=== PATIENT | male | born 1960 | race Caucasian/White ===

== ENCOUNTER 2018-10-20 11:01 | Outpatient (CLI) | payer MEDICARE, MEDICAID, SELFPAY ==
--- NOTE | 2018-11-11 08:33 | ZIOP_ITS ---
ZIO PATCH INTERPRETATION DATE OF DICTATION November 11, 2018 STUDY INDICATION Palpitations. REQUESTING PROVIDER Chance Sanchez M.D. FINDINGS The patient was monitored for 13 days and 1 hour. COMMENTS The predominant underlying rhythm was sinus rhythm. Average heart rate in sinus rhythm 82 beats per minute, range 45 to 144 beats. There was occasional supraventricular ectopy, 1.7% PACs. There was 1 atrial run lasting 4 beats with an average heart rate of 100 beats per minute. There was rare ventricular ectopy, less than 1% PVCs. There was no ventricular tachycardia. There was nocturnal sinus bradycardia. There was no higher-degree heart block. There were no pauses greater than 3 seconds. There were 82 patient events. The majority of events correlated with PACs and PVCs. FINAL INTERPRETATION Occasional PACs and rare PVCs, symptomatic. No significant tachyarrhythmias. Amado Bergeron M.D. YUKO/gabriel T - 11/11/2018
== END 2018-10-20 11:21 ==
PROVIDERS: PCP General Practice; Visit Provider General Practice
DX: R00.2 Palpitations (principal); I49.3 Ventricular premature depolarization; I49.1 Atrial premature depolarization
CPT/HCPCS: 93225

== ENCOUNTER 2018-11-11 08:04 | Outpatient (CLI) | payer MEDICARE, MEDICAID, SELFPAY | END 2018-11-11 08:24 | PROVIDERS: PCP General Practice; Referring Provider General Practice; Visit Provider Student in an Organized Health Care Education/Training Program | DX: R00.2 Palpitations (principal); I49.3 Ventricular premature depolarization; I49.1 Atrial premature depolarization | CPT/HCPCS: 0298T ==

== ENCOUNTER 2024-05-11 21:29 | Outpatient (REF) | payer MEDICARE, MEDICAID, SELFPAY ==
[2024-05-11 13:40] LABS: Abs Immature Grans 0.03 10^3/uL (0.0-0.06); Absolute Basophil Count 0.03 10^3/uL (0.0-0.2); Absolute Eosinophil Count 0.06 10^3/uL (0.0-0.7); Absolute Lymphocyte Count 1.63 10^3/uL (1.2-3.4); Absolute Monocyte Count 0.46 10^3/uL (0.1-0.8); Absolute Neutrophil Count 3.62 10^3/uL (1.2-6.7); Basophils % 0.5 %; HCT 43.3 % (40.0-50.0); HGB 14.3 g/dL (13.5-17.5); Immature Grans % 0.5 %; MCH 29.8 pg (27.0-33.0); MCV 90 fL (80-95); MPV 11.1 fL (8.0-11.0); Monocytes % 7.9 %; Neutrophils % 62.1 %; Platelet Count 240 10^3/uL (130-400); RDW 12.7 % (11.8-14.1); RDW-SD 42.3 fL; WBC 5.83 10^3/uL (4.4-10.8)
[2024-05-11 14:02] LABS: ALT 28 U/L (16-63); AST 22 U/L (15-37); Albumin 3.9 g/dL (3.4-5.0); Alkaline Phosphatase 72 U/L (46-116); Anion Gap 11.1 mmol/L (3-11); BUN 23 mg/dL (7-18); Bilirubin, Total 0.39 mg/dL (0.2-1.0); CO2 21.9 mmol/L (21.0-32.0); Calcium 8.8 mg/dL (8.5-10.1); Calculated LDL 127 mg/dL (<100); Chloride 107 mmol/L (98-107); Cholesterol 188 mg/dL (<200); Estimated GFR 83.01 (mL/min/1.73m2); Glucose 104 mg/dL (74-106); HDL Cholesterol 50 mg/dL (40-60); Potassium 4.3 mmol/L (3.5-5.1); Sodium 140 mmol/L (136-145); TSH (W/Ref FT4) 2.13 uIU/mL (0.36-3.74); Total Protein 7.1 g/dL (6.4-8.2); Triglyceride 55 mg/dL (<150)
[2024-05-11 14:03] LABS: Hemoglobin A1C 5.5 % (<5.7)
[2024-05-12 11:05] LABS: Hepatitis A Antibody IgM Negative (Negative); Hepatitis B Core Antibody Negative (Negative); Hepatitis B surface Ag Negative (Negative); Hepatitis C Ab w Rflx HCV PCR Negative (Negative)
== END 2024-05-11 21:30 | disposition home or self-care (01) ==
LOC: LBN 21:29
PROVIDERS: PCP General Practice; Visit Provider Nurse Practitioner Family
DX: Z00.00 Encounter for general adult medical examination without abnormal findings (principal)
CPT/HCPCS: 80053; 80061; 84153; 86704; 86709; 86803; 87340; 83036; 84443; 85025

== ENCOUNTER → 2024-07-30 13:18 | Outpatient (BNVA) | payer MEDICARE, MEDICAID, SELFPAY | PROVIDERS: PCP General Practice; Referring Provider General Practice; Visit Provider Physical Therapy Assistant | DX: Z12.11 Encounter for screening for malignant neoplasm of colon (principal) ==

== ENCOUNTER 2024-08-14 10:41 | Day surgery (SDC) | payer MEDICARE, MEDICAID, SELFPAY ==
[2024-08-14 11:17] VITALS: BP 119/88; PULSE 71; RESP 16; TEMP 36.9; O2SAT 100
[2024-08-14] MEDS: Normal Saline Flush 10 ML SYR IV (11:38)
--- NOTE | 2024-08-14 12:25 | W.ANESPRE ---
General Info Date of Service Date Performed: 08/14/24 Height: 5 ft 11 in Weight: 84.4 kg Body Mass Index (BMI): 25.9 Surgical Procedure: Operation Date: 08/14/24 12:20 Proposed Procedure Side Surgeon yefri Jiang, DO Meds Allergies and Home Medications Allergies Allergy/AdvReac Type Severity Reaction Status Date / Time hayfever Allergy Mild Other (See Uncoded 08/14/24 11:29 Comment) Home Medication ?Medication ?Instructions ?Recorded meclizine 25 mg tablet (Antivert) 25 mg PO Q6H PRN #30 tabs 09/14/13 sertraline 50 mg tablet 50 mg PO DAILY 05/21/24 bisacodyl 5 mg tablet,delayed 5 mg PO ONCE #4 tabs 07/30/24 release (Dulcolax (bisacodyl)) polyethylene glycol 3350 17 17 g PO ONCE #238 grams 07/30/24 gram/dose oral powder Current Visit Medications: Current Medications Generic Name Dose Route Start Last Admin Trade Name [place] PRN Reason Stop Dose Admin Ringer's Solution 500 mls @ 80 mls/hr 08/14/24 06:00 IV 09/12/24 23:59 INFUSION BRADLY IV Miscellaneous Supplies 1 each 08/14/24 06:00 Iv Access IV 09/12/24 23:59 DIRECTED BRADLY Sodium Chloride 0 ml 08/14/24 06:00 08/14/24 11:38 Normal Saline Flush 10 Ml Syr IV 09/12/24 23:59 10 ml PRN PRN Administration Sodium Chloride 0 ml 08/14/24 06:00 Normal Saline 10 Ml Vial IJ 09/12/24 23:59 DIRECTED PRN Sterile Water 0 ml 08/14/24 06:00 Water,Injection,Sterile 10 Ml Vial IJ 09/12/24 23:59 DIRECTED PRN PFSH Active Problems Active Problems: Problem Status Onset Code Basal cell carcinoma of skin of scalp and neck Acute C44.41 Other obstructive and reflux uropathy Acute N13.8 Pain in right wrist Acute M25.531 Medical History Medical History Elevated lipoprotein(a) Unspecified visual disturbance Major depressive disorder, single episode, mild Tinnitus, unspecified ear Personal history of nicotine dependence Surgical History Surgical History (Updated 08/14/24 @ 11:30 by Linda Corona RN) [place] teeth removed History of appendectomy Hx of hernia repair Tobacco Smoking/Tobacco Use Status: Former Tobacco Use Alcohol Alcohol Intake: never Substance Use Substance use: Never Substance use type: does not use Vital Signs and Lab Results Vital Signs Most Recent Vital Signs in EMR: Most Recent Vital Signs Temp Pulse Resp BP Pulse Ox 36.9 C 71 16 119/88 100 08/14/24 11:17 08/14/24 11:17 08/14/24 11:17 08/14/24 11:17 08/14/24 11:17 Lab Results Blood Type / Crossmatch: No Data to Display Complete Blood Count: No Data to Display Complete Metabolic Panel: No Data to Display Liver Function Panel: No Data to Display Coagulation Panel: No Data to Display Cardiac Panel: No Data to Display Arterial Blood Gas: No Data to Display Venous Blood Gas: No Data to Display Pancreas Panel: No Data to Display Thyroid Panel: No Data to Display Infectious Disease: No Data to Display Blood Cultures: No Data to Display Toxicology Panel: No Data to Display Anesthesia Assessment and Plan Anesthesia History Personal History: No History of Anesthesia Complications Family History: No Family History of Anesthesia Complications Exercise Tolerance Exercise Tolerance: Metabolic Equivalents>4 Pertinent Negatives Pertinent Negatives: No Symptoms of GERD, No Major Cardiovascular Symptoms or Complaints, No Major Pulmonary Symptoms or Complaints and No History of CVA/TIA Cardiac & Pulmonary Exam Cardiac Exam: Normal S1/S2 Heart Sounds Pulmonary Exam: Clear Bilateral Breath Sounds Implantable Cardiac Device Does patient have a Pacemaker or an ICD?: No Airway Exam Known Difficult Airway: No Mallampati Class: 1 Mouth Opening: Normal (> 3cm) Thyromental Distance: Greater than 3 cm Neck Range of Motion: Full ROM Neck Circumference: Normal Teeth Condition: Normal Dentition ASA Classification ASA Score: ASA 2 Emergency Case?: No NPO Status NPO Status: NPO Clears >2 hours, Solids >8 hours Anesthesia Plan Resuscitation Status: Full Code Anesthesia Technique: General Anesthesia Airway Planned: Natural Airway Monitors Used: Standard Monitors Preoperative Comments:: 64 y/o male with history of depression, recovering alcoholic, and BCC of scalp/neck presents for colonoscopy screening.
[2024-08-14 12:29] VITALS: BMI 25.9
--- NOTE | 2024-08-14 13:15 | BOWEL_PTH ---
PATIENT: Joseph Allred LOC: [facility] U#:[id number] AGE/SX: 64/M ROOM: RE08/14/[address]: Karyn Jiang : 1960 BED: DIS: 08/14/2024 SPEC #: [id number] RECD: 08/14/24 15:24 STATUS: ROSEANNA REQ #: [id number] CLAUDIA: 08/14/24 13:[address]: Karyn Jiang DEPT: Surgical Specimen RECD BY: Marley Bone ENTERED: 08/14/24 15:26 SP TYPE: Bowel OTHR DR: Dalia Rodriguez Tissues: 1 - BIOPSY BOWEL 2 - BIOPSY BOWEL Procedures: GROSS AND MICRO LEVEL 4 Comments: [id number]
[2024-08-14 13:34] VITALS: BP 101/69; PULSE 77; RESP 16; TEMP 36.5; O2SAT 95
--- NOTE | 2024-08-14 13:42 | W.COLOREPORT ---
Date of service: 08/14/24 Time of Service: 13:43 Colonoscopy Report Date of procedure: 08/14/24 Pre-op diagnosis general: [facility] screening Post-op diagnosis procedure note: same (Diverticula and polyps) Surgeon: Karyn Jiang Anesthesia Type: General:No Airway Estimated blood loss (mL): 1 Pathology: other Complications: None Disposition: same day Prep: Miralax/Dulcolax Retraction Time: 15 Procedure Description: After informed consent was obtained, explaining risks of the procedure, including but not limits to: bleeding, infections, complications of anesthesia, perforations (which may require antibiotics and /or surgery and stay in the hospital), and abdominal pain/cramping. The patient was taken to the procedure room and placed in a left decubitous position. Monitors were applied and a time out was done. The patients name, date of , procedure, allergies to medications and metal in their body was reviewed. The patient was then sedated. Once sedated and comfortable a rectal exam was done. External exam was normal. Internal exam revealed a normal sphincter tone and no palpable masses. The prostate -no palpable masses The previously lubricated Olympus scope was then introduced (see RN notes for scope number) and retrofelexed. Grade 1 internal hemorrhoids were identified. The scope was then advanced to the cecum without difficulty. The TI and appendiceal orifice were identified. The scope was then slowly retracted over minutes back into the rectum. Polyps: A flat, .75cm polyp was found at 80cm. This was removed with a cold biting forceps. He has a second flat 0.5 cm polyp at 80 cm that is removed with a cold biopsy forcep. There is also a flat 0.5 cm polyp in the rectum that is removed with a cold biopsy forceps. All of the specimen was retrieved. This will be sent to pathology. There is no bleeding noted from the polypectomy site. Diverticula: pt had a minor amount of small mouthed diverticula in the sigmoid colon. There were no signs of active bleeding or infection. The mucosa is pink and healthy w/ a normal vascular pattern. The scope was removed, and the patient was woken up and taken back to Same day surgery in stable condition. The patient tolerated the procedure well and there were no immediate complications. Follow up: The patient should follow up in 5-7 years, path pending, unless they develop changes in bowel habits or other new gastrointestinal complaints. [place]oma Bowel Prep Loma Bowel Prep Right Colon: 3 Left Colon: 3 Transverse Colon: 3 Total Score: 9
--- NOTE | 2024-08-14 13:45 | PDOC.DSDIS_ITS ---
Date of service: 08/14/24 Time of Service: 13:45 Discharge Plan Disposition Patient Disposition: Home Condition: Good Discharge Details Reason For Visit: colon scope Attending Provider: Karyn Jiang Primary Care Provider: Dalia Rodriguez Home Meds and New Rx's Prescriptions: Continued sertraline 50 mg tablet 50 mg PO DAILY Rx Instructions: take 2 tabs in AM, one at bedtime meclizine [Antivert] 25 MG tablet 25 mg PO Q6H PRNQty: 30 0RF Discontinued bisacodyl [Dulcolax (bisacodyl)] 5 mg tablet,delayed release (DR/EC) 5 mg PO ONCE Qty: 4 0RF Rx Instructions: Take per colonoscopy instructions provided by ordering providers office polyethylene glycol 3350 17 gram/dose powder 17 g PO ONCE Qty: 238 0RF Rx Instructions: Take per colonoscopy instructions provided by ordering providers office Discharge Instructions Additional Instructions: DSU Colonoscopy Post- Op Instructions Instructions for Everyone who is given Anesthesia: For your safety, please do the following for the next twenty-four (24) hours: *Do Not operate a motor vehicle (car, truck, motorcycle, etc.) *Do Not drink alcoholic beverages or use any recreational drugs for the first 24 hours or while taking pain medications. The medications in your body may have a reaction that can be dangerous. *Do Not make any important decisions or sign any important papers. Findings: -Diverticula. Make sure you are moving your bowels on a regular basis and not straining to go to the bathroom. If you find you are having problems with constipation or straining on a regular basis then we recommend you start a fiber supplement such as Metamucil -Colon polyps Follow up: My office will send you a letter in 2 to 3 weeks time with the results of the pathology and when we want you to repeat the colonoscopy, most likely 7 years time. 1. No lifting over 20 pounds or strenuous activity for the first 24 hours after your procedure. After 24 hours there are no restrictions on your activity but you may feel fatigued for a few days. 2. After you arrive home you may have a light meal and return to your normal diet as you can tolerate it without feeling sick to your stomach. 3. You may have a bloated, gaseous feeling in your belly (abdomen) after a colonoscopy. Passing gas and belching will help. Walking or lying down on your left side with your knees flexed may relieve the discomfort. Call the office at [phone] (Office) or [phone] (Hospital) right away if you notice any of the following: a.Vomiting of blood or ?coffee ground stools?. b.Rectal bleeding 1Tbsp, blood clots or continuous bleeding. c.Severe belly (abdominal) pain. d.A hard distended belly (abdomen) and an inability to pass gas. 4. Please don?t expect to have a normal BM (bowel movement) for 2-3 days after your procedure. 5. If there are questions regarding the findings of your procedure, please contact your doctor 6. If you are unable to contact your doctor with a problem, contact the hospital at [phone]. 7. Continue all your regular medications unless directed otherwise. I understand the above instructions and have no questions. Signature of Patient or Adult Escort Name of Responsible Adult Escort Signature of Nurse Date/Time Stand Alone Forms: Anesthesia Discharge Inst., Colonoscopy Post Instructions, Sharon Solano (DSU) Activity:: See above Diet:: See above DS: Diagnosis Discharge Diagnosis (1) Diverticula of colon: Status: Acute Asessment and Plan: The patient is seen and examined after their colonoscopy.? The patient has been able to pass gas.? They are not having abdominal pain.? They have been able to tolerate liquids and a snack.? They do not have any nausea or vomiting.? They are not having any chest pain or shortness of breath.??? They are not having any rectal bleeding. Their vital signs have been stable-see nursing notes. We discussed findings during their colonoscopy, and any biopsies that were done/polyps that were removed. The patient will be sent a letter with any biopsy results, and when to repeat the colonoscopy.-see discharge instructions. Patient was given explicit instructions to follow-up regarding colonoscopy-refer to discharge instructions.? We reviewed resumption of medications. Patient verbalized understanding and discharged in stable and satisfactory condition- See nursing notes. (2) Colon polyp: Status: Acute
--- NOTE | 2024-08-14 13:52 | W.ANESPOSTOP ---
Postoperative Evaluation Date, Time and Location Date Performed: 08/14/24 Time Performed: 13:42 Patient Location: Day Surgery Unit Vital Signs Most Recent Imported Vital Signs: Most Recent Vital Signs Temp Pulse Resp BP Pulse Ox 36.5 C 77 16 101/69 95 08/14/24 13:34 08/14/24 13:34 08/14/24 13:34 08/14/24 13:34 08/14/24 13:34 Pain Score Most Recent Pain Score: Most Recent Pain Score Pain Level 0 08/14/24 13:34 Assessment Mental Status: Awake (Alert & Oriented to Patient Baseline) Airway and Respiratory Function: Patent airway with normal (patient baseline) respiratory exam Cardiovascular Function: Hemodynamically Stable Hydration Status: Adequately Hydrated Nausea & Vomiting: No Nausea or Vomiting Pain: Pt. Denies Any Pain Peripheral Nerve Block: Patient did not receive a nerve block
[2024-08-14 14:05] VITALS: BP 109/83; PULSE 56; RESP 16; TEMP 36.6; O2SAT 98
== END 2024-08-14 14:45 | disposition home or self-care (01) ==
PROVIDERS: PCP Nurse Practitioner Family; Visit Provider Surgery
PROC: 0DJD8ZZ Inspection of Lower Intestinal Tract, Via Natural or Artificial Opening Endoscopic (ICD-10-PCS; CPT 45378; principal; 2024-08-14 12:15)
DX: Z12.11 Encounter for screening for malignant neoplasm of colon (principal); K57.30 Diverticulosis of large intestine without perforation or abscess without bleeding; D12.4 Benign neoplasm of descending colon; K64.0 First degree hemorrhoids
CPT/HCPCS: 45380; 88305; J2704